=== PATIENT | female | born 1975 | race Asian ===

== ENCOUNTER 2016-07-09 20:26 | Emergency (ER) | payer BC ==
[~2016-07-09] VITALS: Ht 157.5 cm; Wt 56.7 kg
[2016-07-09 20:33] VITALS: BP 167/94
== END 2016-07-09 21:34 | disposition home or self-care (01) ==
LOC: ER 20:26
DX: L42 Pityriasis rosea (principal); B09 Unspecified viral infection characterized by skin and mucous membrane lesions
CPT/HCPCS: A4606; Z7502; Z7610

== ENCOUNTER 2018-01-28 14:58 | Emergency (ER) | payer BC, OTHER ==
[~2018-01-28] VITALS: Ht 157.5 cm; Wt 64.4 kg
[2018-01-28 15:18] VITALS: BP 132/85
[2018-01-28] MEDS ORDERED: ONDANSETRON 4 MG TAB.RAPDIS ONE (16:07)
[2018-01-28] MEDS ORDERED: LORAZEPAM 1 MG TABLET ONE (16:07)
--- NOTE | 2018-01-28 16:08 | NUR ---
ATIVAN 0.5MG WASTED W/ TATYANA HALL RN
[2018-01-28] MEDS: LORAZEPAM 0.5 MG TABLET PO ONE (16:10)
[2018-01-28] MEDS: ONDANSETRON 4 MG TAB.RAPDIS SL ONE (16:10)
== END 2018-01-28 16:39 | disposition home or self-care (01) ==
LOC: ER 15:03
DX: F41.9 Anxiety disorder, unspecified (principal); E78.00 Pure hypercholesterolemia, unspecified; E11.9 Type 2 diabetes mellitus without complications; F32.9 Major depressive disorder, single episode, unspecified; Z60.2 Problems related to living alone
CPT/HCPCS: 82962; 99284; A4606; Q0162; Z7610